=== PATIENT | male | born 1980 ===

== ENCOUNTER 2023-08-17 04:15 | Day surgery (SDC) | payer BC ==
[2023-08-14 11:42] VITALS: BMI 29.8
[2023-08-17] MEDS ORDERED: KETOROLAC TROMETHAMINE 30 MG/1 ML VIAL ONE (10:51)
[2023-08-17] MEDS ORDERED: LIDOCAINE HCL 2% JELLY 11 ML TP ONE (10:52)
[2023-08-17 12:19] VITALS: BP 120/95; PULSE 59; RESP 19; TEMP 98.2
== END 2023-08-17 12:09 | disposition home or self-care (01) ==
LOC: JASU-ENDO 04:15
PROVIDERS: ATTEND Internal Medicine Gastroenterology
PROC: 06LY8CC Occlusion of Hemorrhoidal Plexus with Extraluminal Device, Via Natural or Artificial Opening Endoscopic (ICD-10-PCS; 2023-08-17)
PROC: 0DJD8ZZ Inspection of Lower Intestinal Tract, Via Natural or Artificial Opening Endoscopic (ICD-10-PCS; principal; 2023-08-17 10:30)
DX: Z12.11 Encounter for screening for malignant neoplasm of colon (principal); K64.2 Third degree hemorrhoids; K57.30 Diverticulosis of large intestine without perforation or abscess without bleeding